=== PATIENT | female | born 1965 | race Two or more races ===

== ENCOUNTER 2018-03-11 14:39 | Outpatient (CLI) | payer OTHER | END 2018-03-11 14:50 | disposition home or self-care (01) | LOC: RAD 14:39 → MAMO-SONO 15:15 | DX: Z12.31 Encounter for screening mammogram for malignant neoplasm of breast (principal); E66.8 Other obesity; G62.89 Other specified polyneuropathies; M15.8 Other polyosteoarthritis; J40 Bronchitis, not specified as acute or chronic; J44.9 Chronic obstructive pulmonary disease, unspecified; Z12.4 Encounter for screening for malignant neoplasm of cervix; Z12.11 Encounter for screening for malignant neoplasm of colon ==

== ENCOUNTER 2018-04-26 12:14 | Outpatient (CLI) | payer OTHER | END 2018-04-26 13:20 | disposition home or self-care (01) | LOC: TOM 12:14 | DX: J43.2 Centrilobular emphysema (principal); F17.200 Nicotine dependence, unspecified, uncomplicated; J45.30 Mild persistent asthma, uncomplicated ==

== ENCOUNTER → 2018-06-11 | Outpatient (CLI) | payer OTHER | END | disposition home or self-care (01) | LOC: NUCLEAR 13:00 | DX: M81.0 Age-related osteoporosis without current pathological fracture (principal) ==

== ENCOUNTER 2019-08-25 14:15 | Outpatient (CLI) | payer OTHER | END 2019-08-25 14:17 | disposition home or self-care (01) | LOC: RAD 14:15 | PROVIDERS: ATTEND Internal Medicine | DX: E66.8 Other obesity (principal); G62.89 Other specified polyneuropathies; J40 Bronchitis, not specified as acute or chronic; J44.9 Chronic obstructive pulmonary disease, unspecified; M15.8 Other polyosteoarthritis; F17.218 Nicotine dependence, cigarettes, with other nicotine-induced disorders; Z12.11 Encounter for screening for malignant neoplasm of colon ==

== ENCOUNTER 2019-08-31 13:30 | Outpatient (CLI) | payer OTHER | END 2019-08-31 13:54 | disposition home or self-care (01) | LOC: MAMO-SONO 13:30 | PROVIDERS: ATTEND Internal Medicine | DX: Z12.31 Encounter for screening mammogram for malignant neoplasm of breast (principal); Z12.11 Encounter for screening for malignant neoplasm of colon; E66.8 Other obesity; G62.89 Other specified polyneuropathies; Z68.33 Body mass index [BMI] 33.0-33.9, adult; J40 Bronchitis, not specified as acute or chronic; J44.9 Chronic obstructive pulmonary disease, unspecified; M15.8 Other polyosteoarthritis; F17.218 Nicotine dependence, cigarettes, with other nicotine-induced disorders ==

== ENCOUNTER 2020-10-23 13:58 | Outpatient (CLI) | payer OTHER | END 2020-10-23 14:26 | disposition home or self-care (01) | LOC: MAMO-SONO 13:58 | PROVIDERS: ATTEND Internal Medicine | DX: R92.1 Mammographic calcification found on diagnostic imaging of breast (principal); Z12.31 Encounter for screening mammogram for malignant neoplasm of breast; E66.8 Other obesity; Z68.33 Body mass index [BMI] 33.0-33.9, adult; G62.89 Other specified polyneuropathies; J40 Bronchitis, not specified as acute or chronic; J44.9 Chronic obstructive pulmonary disease, unspecified; M15.8 Other polyosteoarthritis; F17.218 Nicotine dependence, cigarettes, with other nicotine-induced disorders; M81.0 Age-related osteoporosis without current pathological fracture ==

== ENCOUNTER 2021-05-13 13:56 | Outpatient (CLI) | payer OTHER | END 2021-05-13 13:57 | disposition home or self-care (01) | LOC: LAB 13:56 | PROVIDERS: ATTEND Radiology Diagnostic Radiology | DX: S44.0 Injury of ulnar nerve at upper arm level (principal) ==

== ENCOUNTER 2021-05-17 08:49 | Outpatient (CLI) | payer OTHER | END 2021-05-17 09:04 | disposition home or self-care (01) | LOC: MRI 08:49 | PROVIDERS: ATTEND Internal Medicine Hematology & Oncology | DX: F17.210 Nicotine dependence, cigarettes, uncomplicated (principal); Z12.2 Encounter for screening for malignant neoplasm of respiratory organs; C16.0 Malignant neoplasm of cardia; Z12.89 Encounter for screening for malignant neoplasm of other sites | CPT/HCPCS: 70470; 70491; 71260; Q9965 ==

== ENCOUNTER 2022-01-01 13:48 | Outpatient (CLI) | payer OTHER | END 2022-01-01 14:01 | disposition home or self-care (01) | LOC: MAMO-SONO 13:48 | PROVIDERS: ATTEND Internal Medicine Hematology & Oncology | DX: N60.12 Diffuse cystic mastopathy of left breast (principal); N63.11 Unspecified lump in the right breast, upper outer quadrant; N63.12 Unspecified lump in the right breast, upper inner quadrant; J44.9 Chronic obstructive pulmonary disease, unspecified; E66.8 Other obesity; G62.9 Polyneuropathy, unspecified; J40 Bronchitis, not specified as acute or chronic; Z87.891 Personal history of nicotine dependence ==

== ENCOUNTER 2023-01-07 10:21 | Outpatient (CLI) | payer OTHER | END 2023-01-07 10:28 | disposition home or self-care (01) | LOC: TOM 10:21 | PROVIDERS: ATTEND Internal Medicine Pulmonary Disease | DX: J43.2 Centrilobular emphysema (principal); G47.33 Obstructive sleep apnea (adult) (pediatric); E88.01 Alpha-1-antitrypsin deficiency; R06.02 Shortness of breath ==

== ENCOUNTER 2023-08-19 13:31 | Outpatient (CLI) | payer OTHER | END 2023-08-19 13:40 | disposition home or self-care (01) | LOC: MAMO-SONO 13:31 | PROVIDERS: ATTEND Student in an Organized Health Care Education/Training Program | DX: N60.11 Diffuse cystic mastopathy of right breast (principal); N60.12 Diffuse cystic mastopathy of left breast; Z12.31 Encounter for screening mammogram for malignant neoplasm of breast ==

== ENCOUNTER 2024-07-29 10:24 | Outpatient (CLI) | payer OTHER | END 2024-07-29 10:27 | disposition home or self-care (01) | LOC: SONOGRAMA 10:24 | PROVIDERS: ATTEND Specialist | DX: K75.81 Nonalcoholic steatohepatitis (NASH) (principal) ==

== ENCOUNTER 2024-08-31 12:36 | Outpatient (CLI) | payer OTHER | END 2024-08-31 12:49 | disposition home or self-care (01) | LOC: MAMO-SONO 12:36 | DX: N60.11 Diffuse cystic mastopathy of right breast (principal); N60.12 Diffuse cystic mastopathy of left breast; Z12.31 Encounter for screening mammogram for malignant neoplasm of breast ==

== ENCOUNTER 2025-01-24 07:25 | Outpatient (CLI) | payer OTHER | END 2025-01-24 07:26 | disposition home or self-care (01) | LOC: NUCLEAR 07:25 | PROVIDERS: ATTEND Internal Medicine | DX: R07.9 Chest pain, unspecified (principal) | CPT/HCPCS: 78452; 93017; A9500; J0153 ==